=== PATIENT | female | born 1965 | race Caucasian/White ===

== ENCOUNTER 2021-12-21 13:52 | Emergency (ER) | payer MEDICAID, SELFPAY ==
[2021-12-21 14:11] VITALS: BP 133/72; PULSE 100; RESP 20; TEMP 35.8; O2SAT 98; BMI 43.3
--- NOTE | 2021-12-21 14:27 | CRLHL7_ITS ---
For Patients: As a result of the Century Cures Act, medical imaging exams and procedure reports are released immediately into your electronic medical record. You may view this report before your referring provider. If you have questions, please contact your health care provider. HISTORY: Chest pain. TECHNIQUE: Intravenous contrast enhanced CT chest. 95 ml Isovue 370 intravenous contrast administered. COMPARISON: No prior. FINDINGS: There is no acute pulmonary embolism. No thoracic aortic aneurysm. No significant pericardial effusion. No enlarged mediastinal or hilar lymph nodes. There are areas of mild atelectasis and/or scarring within the lungs. No consolidation. No pulmonary edema. Calcified granuloma left upper lobe. No pneumothorax or pleural effusion. - Small hiatal hernia. Postsurgical changes of gastric bypass. Prior cholecystectomy. - Mild degenerative changes of the spine. No acute fractures. IMPRESSION: 1. No acute pulmonary embolism. 2. No acute lung infiltrate. Dictated by Humberto Cerna MD @ 12/21/2021 3:31:45 PM Please note that all CT scans at this facility use dose modulation, iterative reconstruction, and/or weight-based dosing when appropriate to reduce radiation dose to as low as reasonably achievable. Dictated by: Humberto Cerna MD @ 12/21/2021 15:31:51 (Electronically Signed)
--- NOTE | 2021-12-21 14:30 | ED_ITS ---
HPI - General Adult General Time Seen by Provider: 14:30 Date Seen: 12/21/21 Chief complaint: Chest Pain Stated complaint: Chest pain and shortness of breath Time Seen by Provider: 12/21/21 14:05 Source: patient Mode of arrival: ambulatory Limitations: no limitations History of Present Illness HPI narrative: Patient is a 56 year white female who has a history of depression, sees the [facility] for primary care, reports starting last night having some left-sided chest wall discomfort that now she has got more pain with deep breathing seems to radiate through to her back she notices it very pleuritic in that she takes a deep breath and feels more pain in her anterior chest. She has had COVID in the past, she has no chronic lung disease, quit smoking 15 years ago. Patient denies leg swelling or edema no history of cardiac issues or COPD by her history. She presents to the ED for evaluation at this point she still feels some generalized pleuritic pain when she takes deep breath, if she sits still she feels better. She reports the pain is 6/10 when she takes a deep breath Related Data Home Medications Medication Instructions Recorded Confirmed dextroamphetamine-amphetamine 20 20 mg PO DAILY 12/21/21 12/21/21 mg tablet ferrous sulfate 325 mg (65 mg 325 mg PO DAILY 12/21/21 12/21/21 iron) tablet,delayed release fluoxetine 10 mg capsule 10 mg PO 12/21/21 Previous Rx's Medication Instructions Recorded prednisone 20 mg tablet 20 mg PO BID #6 tabs 12/21/21 Allergies Allergy/AdvReac Type Severity Reaction Status Date / Time No Known Drug Allergies Allergy Verified 12/21/21 14:15 Review of Systems Status of ROS: Reports: 10 or more systems reviewed and unremarkable except as noted in History and below [facility] Social History Smoking Status: Former smoker Do you use any of these nicotine containing products: None Second hand tobacco smoke exposure: No How often do you have a drink containing alcohol: 2-3 times a week How often do you have six or more drinks on one occasion: Never AUDIT-C Alcohol total score: 3 Non-prescribed substance use: denies use Exam Narrative: Exam Narrative: Objective: Patient is alert orient x3, noncyanotic HEENT is unremarkable Neck is supple Chest is clear no rales or wheezing Heart rhythm regular no murmur Abdomen benign soft nontender obese Extremities are no edema neurologic nonfocal Skin is peripherally warm and dry Const: Vital Signs, click to edit/add: Vital Signs - 24 hr 12/21/21 14:11 12/21/21 14:40 12/21/21 15:20 Temperature 96.4 F L Pulse Rate [Right Pulse Oximeter] 100 93 75 Respiratory Rate 20 18 13 Blood Pressure [Ri ght Upper Arm] 133/72 125/57 L 106/53 L Pulse Oximetry 98 97 Oxygen Delivery Me thod Room Air Room Air 12/21/21 15:40 Temperature Pulse Rate [Right Pulse Oximeter] 81 Respiratory Rate 20 Blood Pressure [Ri ght Upper Arm] 102/60 Pulse Oximetry 97 Oxygen Delivery Me thod Room Air Course Vital Signs Vital signs: Initial Vital Signs Temperature 96.4 F L 12/21/21 14:11 Temperature Source Temporal Artery Scan 12/21/21 14:11 Pulse Rate 100 12/21/21 14:11 Respiratory Rate 20 12/21/21 14:11 Blood Pressure 133/72 12/21/21 14:11 Blood Pressure Mean 92 12/21/21 14:11 Blood Pressure Position Sitting 12/21/21 14:11 Pulse Oximetry 98 12/21/21 14:11 Oxygen Delivery Method 12/21/21 14:11 Vital Signs Temperature 96.4 F L 12/21/21 14:11 Pulse Rate 100 12/21/21 14:11 Respiratory Rate 20 12/21/21 14:11 Blood Pressure 133/72 12/21/21 14:11 Pulse Oximetry 98 12/21/21 14:11 Oxygen Delivery Method 12/21/21 14:11 Temperature 96.4 F L 12/21/21 14:11 Pulse Rate 81 12/21/21 15:40 Respiratory Rate 20 12/21/21 15:40 Blood Pressure 102/60 12/21/21 15:40 Pulse Oximetry 97 12/21/21 15:40 Oxygen Delivery Method 12/21/21 15:40 Medical Decision Making MDM Narrative Medical decision making narrative: Patient is a 56 white female with pleuritic chest pain, diffuse, in her anterior chest left lateral chest and upper back. Rule out acute coronary syndrome, rule out PE, pneumonia, rule out chest wall pain. Patient will get labs, troponin, EKG, monitoring, CT scan, IV pain medicine in the form of Toradol. The patient has had gastric bypass but I think 1 dose aspirin would be appropriate given her presentation. Addendum: Patient's CT scan of the chest is basically negative, EKG shows normal sinus rhythm no acute ST T wave changes by my review although she does have some biphasic T-waves laterally I do not have an old 1 for comparison. The patient denies any shortness of breath presently. She has had COVID in the past. Her troponin is 0 her laboratory studies look reassuring. She she feels better after the Toradol. I think would be reasonable to try some Tylenol for brief period of time, med I gave her some prednisone 20 mg b.i.d. for the next 3 days. She may have just some chest wall inflammation. Recheck with regular doctor in the next couple of days with an update, return to the ED sooner problems or concerns Lab Data Labs: Lab Results 12/21/21 12/21/21 12/21/21 Range/Units 14:50 14:50 14:50 WBC 4.70 (4.50-11.00) K/uL RBC 4.28 (4.00-5.20) m/uL Hgb 14.1 (12.0-16.0) gm/dL Hct 41.9 (33.0-51.0) % MCV 98 (80-100) fL MCH 33 (26-34) pg MCHC 34 (32-36) gm/dL RDW Coeff of [place] 12.2 (11.5-15.5) % Plt Count 169 (140-440) K/uL Neut % (Auto) 75.6 H (42.0-72.0) % Lymph % (Auto) 14.7 L (20-44) % [place] % (Auto) 9.1 (0.0-11.0) % Eos % (Auto) 0.2 (0.0-7.0) % Baso % (Auto) 0.4 (0.0-3.0) % Neut # (Auto) 3.60 (1.7-7.0) K/uL Lymph # (Auto) 0.70 L (0.90-2.90) K/uL [place] # (Auto) 0.40 (0.00-0.90) K/UL Eos # (Auto) 0.01 (0.00-0.50) K/uL Baso # (Auto) 0.02 (0.00-0.30) K/uL Abs Immat Gran (auto) 0.00 (0.00-0.30) K/uL Sodium 135 (135-149) mmol/L Potassium 3.9 (3.6-5.1) mmol/L Chloride 101 (96-114) mmol/L Carbon Dioxide 27 (20-32) mmol/L BUN 18 (7-30) mg/dL Creatinine 0.9 (0.5-1.5) mg/dL Estimated Creat Clear 63.55 Estimated GFR 76 ml/min Glucose 107 (60-115) mg/dL Calcium 8.6 (8.4-10.6) mg/dL Total Bilirubin 0.6 (0.1-1.5) mg/dL Direct Bilirubin 0.1 (0.0-0.5) mg/dL AST 97 H (12-35) U/L ALT 63 H (4-35) U/L Alkaline Phosphatase 93 (40-150) U/L C-Reactive Protein 3.6 H (0.5-1.0) mg/dL Total Protein 7.7 (6.0-8.3) g/dL Albumin 4.4 (3.3-5.0) g/dL POC Troponin I 0.00 L (0.01-0.04) ng/ml Discharge Plan Discharge Clinical Impression: Chest pain Patient Disposition: Home, Self-Care Condition: Stable Additional Instructions: Rest, light activity, prednisone as prescribed, Tylenol as needed, update primary care doctor in the next 2 days, return to ED sooner problems concerns. Activity Level: Light activity Discharge Diet: Regular Prescriptions: New prednisone 20 mg tablet 20 mg PO BID Qty: 6 0RF No Action dextroamphetamine-amphetamine 20 mg tablet 20 mg PO DAILY fluoxetine 10 mg capsule 10 mg PO ferrous sulfate 325 mg (65 mg iron) tablet,delayed release (DR/EC) 325 mg PO DAILY Follow Up/Referrals: Stefania Fischer PA-C [Primary Care Provider] - Stand Alone Forms: MyHealth Info Instructions
[2021-12-21 14:40] VITALS: BP 125/57; PULSE 93; RESP 18
[2021-12-21 15:10] LABS: Basophils Absolute Auto 0.02 K/uL (0.00-0.30); Basophils Percent Auto 0.4 % (0.0-3.0); Eosinophils Absolute Auto 0.01 K/uL (0.00-0.50); Eosinophils Percent Auto 0.2 % (0.0-7.0); Hematocrit 41.9 % (33.0-51.0); Hemoglobin* 14.1 gm/dL (12.0-16.0); Lymphocytes Percent Auto 14.7 % (20-44); Mean Corpuscular HGB Conc 34 gm/dL (32-36); Mean Corpuscular Hemoglobin 33 pg (26-34); Mean Corpuscular Volume 98 fL (80-100); Monocytes Percent Auto 9.1 % (0.0-11.0); Neutrophils Percent Auto 75.6 % (42.0-72.0); Platelet Count* 169 K/uL (140-440); RDW Coefficient of Variation % 12.2 % (11.5-15.5); Red Blood Count 4.28 m/uL (4.00-5.20)
[2021-12-21 15:13] LABS: Slide Review Reflex No
[2021-12-21] MEDS: KETOROLAC 30 MG/ML inj IVP (15:18)
[2021-12-21] MEDS: 0.9 % SODIUM CHLORIDE 500 ML 500 ML IV (15:18)
[2021-12-21] MEDS: ASPIRIN 81 MG TAB.CHEW 324 MG PO (15:18)
[2021-12-21 15:20] VITALS: BP 106/53; PULSE 75; RESP 13; O2SAT 97
[2021-12-21 15:25] LABS: Albumin* 4.4 g/dL (3.3-5.0); Chloride* 101 mmol/L (96-114)
[2021-12-21 15:26] LABS: Potassium* 3.9 mmol/L (3.6-5.1); Sodium* 135 mmol/L (135-149)
[2021-12-21 15:28] LABS: Bilirubin Direct* 0.1 mg/dL (0.0-0.5); Bilirubin Total* 0.6 mg/dL (0.1-1.5); Carbon Dioxide* 27 mmol/L (20-32); Creatinine* 0.9 mg/dL (0.5-1.5); Est. Creatinine Clearance* 63.55; Estimated Glomerular Filt Rate 76 ml/min; Total Protein* 7.7 g/dL (6.0-8.3)
[2021-12-21 15:29] LABS: Alanine Aminotransferase* 63 U/L (4-35); Alkaline Phosphatase* 93 U/L (40-150); Aspartate Amino Transferase* 97 U/L (12-35); Blood Urea Nitrogen* 18 mg/dL (7-30); Calcium* 8.6 mg/dL (8.4-10.6); Glucose* 107 mg/dL (60-115)
[2021-12-21 15:31] LABS: C Reactive Protein* 3.6 mg/dL (0.5-1.0)
[2021-12-21 15:40] VITALS: BP 102/60; PULSE 81; RESP 20; O2SAT 97
== END 2021-12-21 16:00 | disposition home or self-care (01) ==
PROVIDERS: Emergency Provider Family Medicine; PCP Physician Assistant Medical
DX: R07.9 Chest pain, unspecified (principal)
CPT/HCPCS: 36415; 71260; 80048; 80076; 84484; 85025; 86140; 93005; 96374; 99284; 99285; A9270; J1885; J7120; Q9967

== ENCOUNTER 2024-05-31 10:15 | Outpatient (RCR) | payer MEDICAID, SELFPAY | END 2024-09-28 23:59 | disposition home or self-care (01) | PROVIDERS: PCP Physician Assistant Medical; Visit Provider Physician Assistant Medical | DX: S62.624D Displaced fracture of middle phalanx of right ring finger, subsequent encounter for fracture with routine healing (principal); Z51.89 Encounter for other specified aftercare | CPT/HCPCS: 97035; 97110; 97140; 97165; 97535; X5282 ==

== ENCOUNTER 2024-09-20 13:53 | Emergency (ER) | payer MEDICAID, SELFPAY ==
--- OUTSIDE RECORDS SUMMARY | 2024-09-20 13:56 | XMS_ITS | Clinical Summary ---
Author Organization [employer] [facility] [employer] [facility] Address [address] [place] [address] Care Team Providers Care Fire Control Assistant Name Role Phone Sid Van MD Unavailable [phone] Maria Luz Estrada MD Unavailable [phone] Stefania Fischer Primary Care Provider Allergies Active Allergy Reactions Criticality Noted Date Comments Gold Au 198 Rash 02/18/2022 Tea Tree Oil Rash High 09/26/2011 Medications cholecalciferol (VITAMIN D3) 2,000 unit capsuleIndicatio ns:Vitamin D deficiency Take 2 capsules by mouth once daily. 0 3 Active multivitamin (MVI) tablet Take 1 tablet by mouth once daily. 0 3 Active nystatin powder (MYCOSTATIN) powderIndication s:Tinea Apply 1 Strip topically to affected area(s) three times daily. 60 g 5 4 Active topiramate (TOPAMAX) 100 mg tabletIndication s:Class 3 severe obesity with body mass index (BMI) of 45.0 to 49.9 in adult, unspecified obesity type, unspecified whether serious comorbidity present,Migraine with status migrainosus, not intractable, unspecified migraine type Take 1 Tablet (100 mg) by mouth two times daily. 180 Tablet 1 4 Active SUMAtriptan (IMITREX) 25 mg tabletIndication s:Migraine with aura and with status migrainosus, not intractable TAKE ONE TABLET BY MOUTH EVERY 2 HOURS NEEDED FOR MIGRAINE; TAKE DOSES AT A MINIMUM OF 2 HOURS APART (MAX DOSE: 200 MG IN 24 HOURS) 9 Tablet 5 5 Active DULoxetine (CYMBALTA) 60 mg Delayed-release capsuleIndicatio ns:SERAFIN (generalized anxiety disorder),Severe episode of recurrent major depressive disorder, without psychotic features (HC) TAKE 1 CAPSULE (60MG) BY MOUTH ONCE DAILY. 90 Capsule 5 Active semaglutide, weight loss, (Wegovy) 1 mg/0.5 mL subcutaneous penIndications:C lass 3 severe obesity with body mass index (BMI) of 45.0 to 49.9 in adult, unspecified obesity type, unspecified whether serious comorbidity present Inject 1 mg subcutaneous once weekly. 6 mL 5 Active metFORMIN 500 mg tabletIndication s:Class 3 severe obesity with body mass index (BMI) of 45.0 to 49.9 in adult, unspecified obesity type, unspecified whether serious comorbidity present,Insulin resistance TAKE ONE TABLET (500 MG) BY MOUTH TWICE DAILY WITH MEALS 180 Tablet 5 Active triamcinolone 0.1 % creamIndications :Dermatitis Apply topically to affected area(s) three times daily. 80 g 5 Active Active Problems Problem Noted Date Diagnosed Date Severe episode of recurrent major depressive disorder, without psychotic features 05/24/2024 Alcohol use disorder, moderate, in early remissi on 05/24/2024 ASCUS with positive high risk HPV cervical 01/07 Overview (01/20/2022): 01/07/18 ASCUS/HPV+ 02/11/18 Mammoth: Negative 12/24/21 NIL/HPV+, HPV 16/18 Negative Plan: Pap and HPV 12/2022 Adenomatous colon polyp 08/11/2017 Overview (08/11/2017): Colonoscopy 08/2017 polyps, repeat in 5 years Humerus fracture 01/15/2014 Dysfunctional alcohol use 11/04/2013 Vitamin D deficiency 08/17/2009 S/P gastric bypass 10/15/2008 Depression 10/15/2008 Status post gastric bypass for obesity 8 Attention deficit disorder without mention of hy peractivity 09/19/2006 Migraine, unspecified, witho ut mention of intractable migraine without mention of status migrainosus 09/19/2006 Resolved Problems Problem Noted Date Diagnosed Date Resolved Date Menorrhagia 11/26/2012 11/04/2013 Lump or mass in breast 06/01/201211/24 Gallstone pancreatitis 10/15/200811/04 Anemia, unspecified 10/15/2008 11/05/19 14 Encounters Date Type Department Care Team Description 09/14/2024 2:25 PM CDT Office Visit [facility] [address] [place] [address] Aquilino Brooks PA Derm Problem 09/14/2024 Travel 09/14/[address] [facility] [address] [place] [address] Stefania Fischer PA Bite (Large red/purple lumps on face and neck) 08/05/[address] [facility] [address] [place] [address] Stefania Fischer PA Refill Request (Metformin) 07/20/2024 11:50 AM CDT Office Visit [facility] [address] [place] [address] Stefania Fischer PA Medication Management (Wegovy - ) 07/19/2024 Travel 07/12/[address] [facility] [address] [place] [address] Teresa Foster NP Refill Request (Duloxetine) 06/25/[address] [facility] [address] [place] [address] Stefania Fischer PA Refill Request (Sumatriptan) from Last 3 Months Immunizations Immunization Administration Dates Next Due Influenza, IIV3 (Age >=3 years) 05/28/2012,03/14 Influenza, IIV4 04/14/2017,02/27/2016,03/20/2015 Td (Age >=7 Years) 12/15/2003 Tdap 05/28/2012 Family History Medical History Relation Name Comments Good Health Father Diabetes Mother Hyperlipidemia Mother Hypertension Mother Cancer-colon Paternal Grandfather Cancer-breast No Family History Relation Name Status Comments Father Alive Mother Alive Paternal Grandfather Social History Tobacco Use Types Packs/Day Years Used Date Smoking Tobacco: Former Cigarettes 1 15 0 11/08/1988 - 11/09/2003 Smokeless Tobacco: Never Tobacco Cessation:Counseling Given: Not Answered Alcohol Use Standard Drinks/Week Comments Not Currently 0 (1 standard drink = 0.6 oz pur e alcohol) PHQ-2 Answer Date Recorded PHQ-2 TOTAL SCORE 6 02/23/2024 Social Connections Answer Date Recorded Do you often feel lonely or isolated from those around you? 0 08/14/2023 Alcohol Use Answer Date Recorded How often do you have a drink containing alcohol ? 4 02/18/2022 How many drinks containing a lcohol do you have on a typical day when you are drinking? 1 02/18/2022 Frequency of Binge Drinking Not on file 02/08 Financial Resource Strain Answer Date R ecorded Difficulty of Paying Living Expenses 3 08/14/2023 Difficulty of Paying Living Expenses Not on file 08/14/2023 Food Insecurity Answer Date Recorded Do you worry your food will run out before you are able to buy more? 1 08/14/2023 Transportation Needs Answer Date Record ed Does lack of transportation keep you from medica l appointments? 1 08/14/2023 Does lack of transportation keep you from work, meetings or getting things that you need? 1 08/14/2023 Housing Stability Answer Date Recorded What is your housing situation today? 1 08/14/2023 Utilities Answer Date Recorded Do you have trouble paying f or utilities (for example, heat, electricity, water, phone)? 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 [employer] Gender Identity Not on file Sexual Orientation Not on file Obstetrics History Para Term AB IAB SAB Ectopic Multiple Livin g Live Births 3 3 3 Date Outcome GA Total Labor Labor/2nd/3rd Weight Sex Type Anes PTL Maribel A1 A5 Name Clin Para Para Para Last Filed Vital Signs Vital Sign Reading Time Taken Comments Blood Pressure 133/62 09/14/2024 1:48 PM CDT Pulse 72 09/14/2024 1:48 PM CDT Temperature 36.3 C (97.4 F) 09/14/2024 1:48 PM CDT Respiratory Rate 14 09/14/2024 1:48 PM CDT Oxygen Saturation 96% 09/14/2024 1:48 PM CDT Inhaled Oxygen Concentration - - Weight 113.8 kg (250 lb 12.8 oz) 2024 11:40 AM CDT Height 164.2 cm (5' 4.65) 07/20/2024 1 1:40 AM CDT Body Mass Index 42.19 07/20/2024 11:40 AM CDT Plan of Treatment Upcoming Encounters Date Type Department Care Team (Late st Contact Info) Description 09/23/2024 10:30 AM CDT Office Visit [facility] [address] [place] [address] Stefania Fischer PA [address] [place] [address] 10/11/2024 10:30 AM CDT Office Visit [facility] [address] [place] [address] Teresa Foster NP [address] [place] [address] 10/18/2024 11:10 AM CDT Office Visit [facility] [address] [place] [address] Stefania Fischer PA [address] [place] [address] Health Maintenance Due Date Last Done Comments HIV for age 15-65 1981 Pneumococcal series for age 50+ (1 of 2 - PCV) 1985 Zoster (shingles) series for age 50+ (1 of 2) 2016 Tetanus booster 05/28/2022 05/28/2012, 12/15/2003 Colonoscopy through age 75 07/31/202207/31, 07/31/2017, 07/31/2017 Pap test for age 21-65 12/24/2022 , 12/24/2021, 01/07/2018, Additional history exists COVID-19 vaccine series ( season) 2024 02/02/2021, 01/12/2021 Influenza Vaccine (Season Ended) 2025 04/14/2017, 02/27/2016, 03/20/2015, Additional history exists Depression screening for age 12+ 03/01/2025 03/01/2024, 02/23/2024, 02/23/2024, Additional history exists Mammogram for age 45-75 05/10/2025 05/10/20 24, 04/16/2023, 09/25/2021, Additional history exists BMI (ht and wt on same day) for age 18+ 07/20/2025 07/20/2024, 05/24/2024, 08/14/2023, Additional history exists Lipids for age 45-75 12/24/2026 12/24/2021, 08/16/2009, 03/14/2008 Tdap Completed 05/28/2012 Hepatitis C screening for ag e 18-79 Completed 12/24/2021 Procedures Procedure Name Priority Date/Time Associated Diagnosis Comments BASIC METABOLIC PANEL Routine 07/20/2024 12:07 PM CDT Class 3 severe obesity with body mass index (BMI) of 45.0 to 49.9 in adult, unspecified obesity type, unspecified whether serious comorbidity present (HC) XR MAMMO BILAT SCREENING Routine 05/10/2024 11:52 AM HAND [employer]SEM[employer] Visit for screening mammogram ANTI HCV Routine 12/24/2021 11:34 AM CDT Need for hepatitis C screening test LIPID PANEL W REFLEX MEASURED LDL Routine 12/24/2021 11:34 AM CDT Screening cholesterol level HPV HIGH RISK Routine 12/24/2021 11:08 AM CDT ASCUS with positive high risk HPV cervical COLONOSCOPY 07/31/2017 9:22 AM CDT from Last 3 Months or Most Recently Relevant to Health Maintenance Results * BASIC METABOLIC PANEL (07/20/2024 12:07 PM CDT) GLUCOSE 87 65 - 99 mg/dL [facility] Comment: Fasting reference interval UREA NITROGEN (BUN) 19 7 - 25 mg/dL [facility] CREATININE 0.86 0.50 - 1.03 mg/dL [facility] EGFR 79 > OR = 60 mL/min/1. 73m2 [facility] BUN/CREATININE RATIO SEE NOTE: 6 - 22 (calc) [facility] Comment: Not Reported: BUN and Creatinine are within reference range. SODIUM 143 135 - 146 mmol/L [facility] POTASSIUM 4.9 3.5 - 5.3 mmol/L [facility] CHLORIDE 105 98 - 110 mmol/L [facility] CARBON DIOXIDE 27 20 - 32 mmol/L [facility] ELECTROLYTE BALANCE 11 7 - 17 mmol/L (calc) [facility] CALCIUM 9.7 8.6 - 10.4 mg/dL [facility] Blood BLOOD SPECIMEN / Unknown 07/20/2024 12:07 PM CDT 07/20/2024 12:07 PM CDT us Stefania REHMAN CHEMISTRY Final R esult [employer] [facility] [address] [place] [address], [facility] [address] [place] [address] * XR MAMMO BILAT SCREENING (05/10/2024 11:52 AM 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 Recommend annual mammograms. MAMMOGRAM ASSESSMENT: ACR 1 Negative PATIENTS: You will also receive a letter with your examination results in an easy to read format. If you have questions about your results, please contact your referring provider. Narrative 05/10/2024 3:50 PM HAND ASSEMBLER [employer] For Patients: As a result of the Century Cures Act, medical imaging exams and procedure reports are released immediately into your electronic medical record. You may view this report before your referring provider. If you have questions, please contact your health care provider. XR MAMMO BILAT SCREENING [[id number]] CLINICAL HISTORY: This is an asymptomatic 58 y.o. patient. INDICATION FOR EXAM: Mammogram Screening. TECHNIQUE: CC & MLO views were obtained. This study was evaluated with the assistance of Computer-Aided Detection. COMPARISON FILM: Yes 04/16/23 [employer] [facility] [employer] 09/25/21 [facility] FINDINGS: There are scattered areas of fibroglandular density. There are no dominant masses, suspicious micro calcifications or areas of architectural distortion. us Stefania REHMAN MAMMO Final R esult * (ABNORMAL) LIPID PANEL W REFLEX MEASURED LDL (12/24/2021 11:34 AM CDT) CHOLESTEROL,TOTAL 230(H) 100 - 199 mg/dL 12/25/2021 4:41 AM CDT [facility] TRIGLYCERIDES 84 <150 mg/dL 12/25/2021 4:41 AM CDT [facility] HDL CHOLESTEROL 92 >40 mg/dL 4:41 AM CDT [facility] NON-HDL CHOLESTEROL 138 <145 mg/dl 12/25/2021 4:41 AM CDT [facility] CHOL/HDL RATIO 2.50 <4.50 12/25/2021 4:41 AM CDT [facility] LDL CHOLESTEROL 121 <=130 mg/dL 12/25/2021 4:41 AM CDT [facility] VLDL CHOLESTEROL 17 <=30 mg/dL 12/25/2021 4:41 AM T [facility] PROVIDER ORDERED STATUS RANDOM 12/25/2021 4:41 AM CDT [facility] Blood BLOOD SPECIMEN / Unknown Butterfly / Unknown 12/24/2021 11:34 AM CDT 12/24/2021 11:35 AM CDT Stefania REHMAN CHEMISTRY Final R esult [facility] [address] [place] [address], [place] * ANTI HCV (12/24/2021 11:34 AM CDT) HEPATITIS C ANTIBODY Non-React raisa Non-React raisa 12/25/2021 5:01 AM CDT [facility] Comment:Antibodies to HCV no t detected; does not exclude the possibility of exposure to HCV. Blood BLOOD SPECIMEN / Unknown Butterfly / Unknown 12/24/2021 11:34 AM CDT 12/24/2021 11:35 AM CDT Stefania REHMAN SEND OUTS Final R esult Performing Organization Address City/[facility]/ZIP Co de Phone Number [facility] [address] [place] [address], * (ABNORMAL) HPV HIGH RISK (12/24/2021 11:08 AM CDT) TYPE 16 Negative Negative 12/26/2021 2:34 PM CDT [facility] TYPE 18 Negative Negative 12/26/2021 2:34 PM CDT [facility] OTHER HIGH RISK TYPES Positive(A) Negative 12/26/2021 2:34 PM CDT [facility] Other (Cervical) Non-Blood / Unknown 12/24/2021 11:08 AM CDT 12/24/2021 6:53 PM CDT Narrative [facility] - 12/26/2021 2:34 PM CDT Specimen is positive for the DNA of any one of, or combination of, the following high risk HPV types: 31, 33, 35, 39, 45, 51, 52, 56, 58, 59, 66, 68. HPV types 16 and 18 DNA were undetectable or below the pre-set threshold. Methodology: Yadira Bebe 4800 HPV Test us Stefania REHMAN MICROBIOLOGY Final R esult [facility] [address] [place] [address], [place] * COLONOSCOPY (07/31/2017 9:22 AM CDT) 07/31/2017 9:22 AM CDT Narrative Transcriptions Billy Jefferson MD - 07/31/2017 10:11 AM CDT Patient Name: Dyana Jang Procedure Date: 07/31/2017 Gender: Female Date of : 1965 Admit Type: Outpatient Procedure: Colonoscopy Proceduralist: Billy Jefferson MD , Daphney Booker (Nurse) Indications/Pre-Op Diagnosis: Screening for colorectal malignant neoplasm, This is the patient's first colonoscopy Medications: Fentanyl 100 micrograms IV, Midazolam 2 mgIV, The level of sedation administered wasmoderate Procedure Description: The patient had risks, benefits and alternatives explained to andgave informed consent. The patient had a stable cardiopulmonary status and judged an adequate candidate for conscious sedation. The Colon CF-H180AL [id number] was passed through the anus and advancedto the cecum, identified by appendiceal orifice and ileocecal valve. The colonoscopy was performed without difficulty. The patient toleratedthe procedure well. The quality of the bowel preparation was good. The ileocecal valve, appendiceal orifice, and rectum were photographed. Complications: No immediate complications. Estimated Blood Loss & Specimen: Estimated blood loss: none. Specimen collected - Yes and sent to Laboratory Findings: The perianal and digital rectal examinations were normal. A 4 mm polyp was found in the sigmoid colon. The polyp was sessile.The polyp was removed with a hot snare. Resection and retrieval were complete. A 3 mm polyp was found in the ascending colon. The polyp was sessile. The polyp was removed with a cold biopsy forceps. Resection and retrieval were complete. The colon (entire examined portion) was mildly redundant. The exam was otherwise without abnormality on direct and retroflexion views. Impressions/Post-Op Diagnosis: - One 4 mm polyp in the sigmoid colon, removed with a hot snare. Resected and retrieved. - One 3 mm polyp in the ascending colon, removed with a cold biopsy forceps. Resected and retrieved. - Redundant colon. - The examination was otherwise normal on direct and retroflexionviews. Recommendation: - Patient has a contact number available for emergencies. The signsand symptoms of potential delayed complications were discussed with the patient. Return to normal activities tomorrow. Written discharge instructions were provided to the patient. - Resume previous diet. - Continue present medications. - Await pathology results. - Repeat colonoscopy is recommended. The colonoscopy date will be determined after pathology results from today's exam become available for review. - For future colonoscopy the patient will require an extended preparation, PEG 4-8L. If there are any questions, please contact the performance engineer. Moderate Sedation: Moderate (conscious) sedation was administered by the endoscopy nurse and supervised by the endoscopist. The following parameters were monitored: oxygen saturation, heart rate, respiratory rate, blood pressure, adequacy of pulmonary ventilation and reponse to care. [facility] flow[facility]ets and nursing notes for moderate sedation details. Total physician intraservice time was 24 minutes. Billy Jefferson MD 07/31/2017 10:11:45 AM This report has been signed electronically. Note Initiated On: 07/31/2017 9:22 AM Procedure Code(s): --- Professional --- 80924, Colonoscopy, flexible; with removalof tumor(s), polyp(s), or other lesion(s) bykaynarsulma technique 90209, 59, Colonoscopy, flexible; withbiopsy, single or multiple Diagnosis Code(s): --- Professional --- Z12.11, Encounter for screening formalignant neoplasm of colon D12.5, Benign neoplasm of sigmoid colon D12.2, Benign neoplasm of ascending colon Q43.8, Other specified congenitalmalformations of intestine CPT copyright 2017 [employer]. All rights reserved. The codes documented in this report are preliminary and upon radial router operator reviewmay be revised to meet current compliance requirements. Scope In: 9:36:11 AM Scope Withdrawal Time 0 hours 11 minutes 55 seconds Scope Out: 9:58:16 AM Billy Jefferson MD PROCEDURE ORD Final Res ult from Last 3 Months or Most Recently Relevant to Health Maintenance Insurance [facility] Advance Directives * Full Code (Latest Code Status on File) Date Activated Date Inactivated Comments 11/26/2012 8:21 AM 11/26/2012 3:05 PM * Full Code Date Activated Date Inactivated Comments 10/18/2008 10:50 AM 10/22/2008 4:30 PM * Full Code Date Activated Date Inactivated Comments 10/15/2008 8:58 AM 10/18/2008 10:50 AM Care Teams Fire Control Assistant Relationship Specialty Start Date End Date Stefania Fischer PA [address] [place] [address] PCP - General Family Practice 03/20/15 Sid Van MD [address] [address] Nephrology Nephrology 06/30/12 Maria Luz Estrada MD [address] [place] [address] Gynecology Obstetrics and Gynecology 09/28/12
--- NOTE | 2024-09-20 13:57 | ED.GENADULT ---
HPI - General Adult General Date Seen: 09/20/24 Chief complaint: Shortness of Breath/Dyspnea Stated complaint: Tingling body, Light headed, SOB Time Seen by Provider: 09/20/24 13:55 History of Present Illness HPI narrative: 58 yo F with h/o depression, distant h/o tobacco use (15 - 20 yrs ago), presents to the ER this afternoon (accompanied by her son) for evaluation of tingling pins and needles throughout her body as well as shortness of breath lightheadedness. Patient has a history depression and is on fluoxetine, and is on metformin for weight loss but does not have diabetes. She presents to the ER today with symptoms that began with an hour prior to arrival. She was feeling normally lately. No recent illness. No recent cough or fever. No chest pain. No palpitations. No vomiting or diarrhea. No black or bloody stools. No swelling in her legs. She has had some recent GI problems so her friend recommended that she start on a probiotic. She took her 1st 1 of those this morning which was a gummy containing bacillus coagulans as well as other inactive ingredients. She was otherwise getting ready for work and was in her normal usual state of health. She started to feel tingly pins and needles that started in her feet and then spread proximally from there. They also started her fingertips and spread proximally for there and then have gotten throughout her whole body all the way up to her head. She began to feel little bit lightheaded. She was not really feeling palpitations or chest pain. She got a little bit short of breath. She continues to feel very tingly and pins and needles throughout her body. She says that she has had pins and needles occasionally in the past like when she sits on her foot in a position (when her foot falls asleep). She has always been able to shake her body (foot) and make them go away. These pins and needles though have not gone away yet. She also felt lightheaded. No CP. No n/v. She called her son who brought her right here to the ER. Now she is here in the ER she is still feeling tingly but is not as lightheaded anymore and is not short of breath. She was not having any weakness in her arms or legs. No slurred speech. No blurry vision. Symptoms were bilateral and symmetric. At no time did she have any unilateral numbness. Related Data Home Medications ?Medication ?Instructions ?Recorded ?Confirmed dextroamphetamine-amphetamine 20 20 mg PO DAILY 12/21/21 12/21/21 mg tablet ferrous sulfate 325 mg (65 mg 325 mg PO DAILY 12/21/21 12/21/21 iron) tablet,delayed release fluoxetine 10 mg capsule 10 mg PO 12/21/21 duloxetine 60 mg capsule,delayed 60 mg PO DAILY 09/20/24 09/20/24 release metformin 500 mg tablet 500 mg PO BID 09/20/24 09/20/24 semaglutide (weight loss) 0.5 mg subcut 09/20/24 mg/0.5 mL subcutaneous pen injector (Wegovy) topiramate 100 mg tablet 100 mg PO BID 09/20/24 09/20/24 triamcinolone acetonide 0.1 % 1 applic topical BID-TID 09/20/24 09/20/24 topical cream Previous Rx's ?Medication ?Instructions ?Recorded prednisone 20 mg tablet 20 mg PO BID #6 tabs 12/21/21 Allergies Allergy/AdvReac Type Severity Reaction Status Date / Time No Known Drug Allergies Allergy Verified 12/21/21 14:15 [facility] Social History Smoking Status: Former smoker Do you use any of these nicotine containing products: None Second hand tobacco smoke exposure: No How often do you have a drink containing alcohol: 2-3 times a week How often do you have six or more drinks on one occasion: Never AUDIT-C Alcohol total score: 3 Non-prescribed substance use: denies use Exam Narrative: Exam Narrative: Constitutional: Appears well-developed and well-nourished. Alert. Conversant. Non toxic. Polite. See was mildly anxious. HENT: Head: Atraumatic. Nose: Nose normal. Mouth/Throat: Oral mucosa is clear and moist. no trismus. Pharynx normal. Tonsils symmetric. No tonsillar enlargement, erythema, or exudate. Eyes: Conjunctivae normal. EOM normal. Pupils equal, round, and reactive to light. No scleral icterus. Neck: Normal range of motion. Neck supple. No tracheal deviation present. Cardiovascular: Normal rate, regular rhythm. No gallop. No friction rub. No murmur heard. Symmetric radial artery pulses Pulmonary/Chest: Effort normal. No stridor. No respiratory distress. No wheezes. No rales. No rhonchi . No tenderness. Abdominal: Soft. No distension. No mass. No tenderness. No rebound. No guarding. Musculoskeletal: RUE: Normal range of motion. No tenderness. No deformity LUE: Normal range of motion. No tenderness. No deformity RLE: Normal range of motion. No edema. No tenderness. No deformity LLE: Normal range of motion. No edema. No tenderness. No deformity Neurological: Mental status normal. Attention normal. Alert and oriented x3. GCS 15. Memory normal. Speech fluent. Cognition normal. Cranial Nerves intact II-XII except I did not formally test gag or visual acuity. EOMI. Palate elevates symmetrically and tongue protrudes in the midline. Strength: 5/5 trapezius on the right and left 5/5 deltoid on the right and left 5/5 biceps on the right and left 5/5 triceps on the right and left 5/5 information technology project manager on the right and left 5/5 thumb opposition on the right and left 5/5 finger abduction on the right and left 5/5 hip flexors (L3) on the right and left 5/5 quadriceps (L4) on the right and left 5/5 tibialis anterior on the right and left 5/5 EHL (L5) on the right and left 5/5 gastrocnemius (S1) on the right and left 5/5 hamstring on the right and left Sensation intact to light touch in both upper extremities (C4-T1) Sensation intact to light touch in Both lower extremities (L4-S1). Finger to nose and coordination normal. Gait normal. Skin: Skin is warm and dry. No rash noted. No pallor. Normal capillary refill. Psychiatric: Normal mood. Seems mildly anxious. Denies any recent stressors. Her son is with her and he is in the midst of College finals this week Const: Vital Signs, click to edit/add: Vital Signs - 24 hr 09/20/24 13:59 Temperature 98.2 F Pulse Rate [Pulse Oximeter] 103 H Respiratory Rate 18 Blood Pressure [Ri ght Upper Arm] 110/77 Pulse Oximetry 94 Oxygen Delivery Me thod Room Air Course Vital Signs Vital signs: Initial Vital Signs Temperature 98.2 F 09/20/24 13:59 Temperature Source Temporal Artery Scan 09/20/24 13:59 Pulse Rate 103 H 09/20/24 13:59 Respiratory Rate 18 09/20/24 13:59 Blood Pressure 110/77 09/20/24 13:59 Blood Pressure Mean 88 09/20/24 13:59 Pulse Oximetry 94 09/20/24 13:59 Oxygen Delivery Method Room Air 09/20/24 13:59 Vital Signs Temperature 98.2 F 09/20/24 13:59 Pulse Rate 103 H 09/20/24 13:59 Respiratory Rate 18 09/20/24 13:59 Blood Pressure 110/77 09/20/24 13:59 Pulse Oximetry 94 09/20/24 13:59 Oxygen Delivery Method Room Air 09/20/24 13:59 Temperature 98.2 F 09/20/24 13:59 Pulse Rate 103 H 09/20/24 13:59 Respiratory Rate 18 09/20/24 13:59 Blood Pressure 110/77 09/20/24 13:59 Pulse Oximetry 94 09/20/24 13:59 Oxygen Delivery Method Room Air 09/20/24 13:59 Medications Administered Medications: Discontinued Medications Generic Name Dose Route Start Last Admin Trade Name Freq PRN Reason Stop Dose Admin Sodium Chloride 1,000 mls @ 1,000 mls/hr 09/20/24 16:30 09/20/24 17:09 0.9 % Sodium Chloride 1000 Ml IV 09/20/24 17:29 Not Given .Q1H BHAVANA Lorazepam 1 mg 09/20/24 14:24 09/20/24 14:38 Lorazepam 1 Mg Tablet PO 09/20/24 14:25 1 mg ONCE ONE Administration Potassium Bicarbonate 25 meq 09/20/24 16:20 09/20/24 16:55 Potassium Bicarb 25 Meq Effervescent Tab PO 09/20/24 16:21 25 meq ONCE ONE Administration Medical Decision Making [facility] Narrative Medical decision making narrative: pleasant 58 yo F presenting to ER for eval of tingling paresthesias affecting symmetrically both sides of her whole body, beginning in her feet and spreading proximally from there. Symptoms began after her first dose of a new probiotic gummy (not containing THC or other drugs). Differential is broad. No seizure activity. No altered mental status or headache to suggest ICH or SAH. No chest pain to suggest ACS, but given potential for an atypical presentation, EKG and trop were checked and normal. Given bilateral/symmetric tingling, not suggestive of stroke. EKG here in ER shows NSR. No arrythmia. Glc normal. TSH normal. Electrolytes normal save for mild hypokalemia. Supplemented here in ER, but likely not low enough to cause all of her symptoms. Consider anxiety attack, but not accutly anxious affect on presentation. PO ativan with some improvement. Also consider side effect of her probiotic gummy. Advised to discontinue use until alterrnative cause for her symptoms is found. During obs and workup here in ER symptoms slowly improved. Pt is feeling better. She and her son are comfortable to DC home and monitor carefully. Precautions for return and need for follow up reviewed. Lab Data Labs: Lab Results 09/20/24 09/20/24 09/20/24 Range/Units 14:24 14:35 17:04 WBC 3.45 L (4.50-11.00) K/uL RBC 4.39 (4.00-5.20) m/uL Hgb 13.3 (12.0-16.0) gm/dL Hct 40.2 (33.0-51.0) % MCV 92 (80-100) fL MCH 30 (26-34) pg MCHC 33 (32-36) gm/dL RDW Coeff of [place] 14.2 (11.5-15.5) % Plt Count 205 (140-440) K/uL Neut % (Auto) 70.4 (42.0-72.0) % Lymph % (Auto) 23.2 (20-44) % [place] % (Auto) 5.5 (0.0-11.0) % Eos % (Auto) 0.3 (0.0-7.0) % Baso % (Auto) 0.6 (0.0-3.0) % Neut # (Auto) 2.40 (1.7-7.0) K/uL Lymph # (Auto) 0.80 L (0.90-2.90) K/uL [place] # (Auto) 0.20 (0.00-0.90) K/UL Eos # (Auto) 0.00 (0.00-0.50) K/uL Baso # (Auto) 0.00 (0.00-0.30) K/uL Abs Immat Gran (auto) 0.00 (0.00-0.30) K/uL Imm/Tot Granulo (auto) 0.0 % D-Dimer Quant (PE/DVT) < 0.27 (0.00-0.50) ug/ml Sodium 142 (135-149) mmol/L Potassium 3.2 L (3.6-5.1) mmol/L Chloride 111 (96-114) mmol/L Carbon Dioxide 20 (20-32) mmol/L Anion Gap 11 (7-15) mEq/L BUN 17 (7-30) mg/dL Creatinine 0.8 (0.5-1.5) mg/dL Estimated Creat Clear 69.82 Estimated GFR 86 ml/min Glucose 125 H (60-115) mg/dL Calcium 8.9 (8.4-10.6) mg/dL Magnesium 1.6 (1.5-2.6) mg/dL TSH 0.909 (0.270-4.200) uIU/mL POC Troponin I 0.01 0.00 L (0.01-0.04) ng/ml ECG Data Attestation: I personally reviewed and interpreted this ECG as follows: Interpretation: Normal sinus rhythm Rate: 82 MN: 174 QRS axis: Normal axis. ST segment/T wave: Nonspecific T-wave inversions V1, V2, V3, V4. Nonspecific T-wave flattening. No ST segment elevation or depression QTc: 427 Discharge Plan Discharge Clinical Impression: Paresthesias, Acute hypokalemia Patient Disposition: Home, Self-Care Condition: Stable Instructions: Hypokalemia (ED), Paresthesia (ED) Additional Instructions: At this point your workup looks reassuring. However, we do not know with sign typically certainty what caused her symptoms. I suspect they were probably caused by a reaction to your new probiotic. I would recommend that you discontinue that medication. Continue your other meds. Your potassium level is mildly low today. It is important to eat foods that are rich in potassium (for instance, bananas, tomato juice, avocados, potato skins) for the next couple of days to help her potassium level come up. Please follow-up with your regular doctor to recheck your potassium level within 1-2 weeks. If you have any new or worsening symptoms such as new numbness or tingling, weakness in your arms or legs, palpitations, chest pain, confusion or slurred speech, or if you notice any other problems, please return to the ER right away to be rechecked. Prescriptions: No Action metformin 500 mg tablet 500 mg PO BID triamcinolone acetonide 0.1 % cream 1 applic topical BID-TID topiramate 100 mg tablet 100 mg PO BID duloxetine 60 mg capsule,delayed release(DR/EC) 60 mg PO DAILY Wegovy 0.5 mg/0.5 mL pen injector SUBCUT Patient Comments: [NO ORIGINAL SIG] dextroamphetamine-amphetamine 20 mg tablet 20 mg PO DAILY fluoxetine 10 mg capsule 10 mg PO ferrous sulfate 325 mg (65 mg iron) tablet,delayed release (DR/EC) 325 mg PO DAILY prednisone 20 mg tablet 20 mg PO BID Qty: 6 0RF Follow Up/Referrals: Stefania Fischer PA-C [Primary Care Provider] - Stand Alone Forms: [employer] Info Instructions
[2024-09-20 13:59] VITALS: BP 110/77; PULSE 103; RESP 18; TEMP 36.8; O2SAT 94; BMI 38.4
[2024-09-20] MEDS: LORazepam 1 MG TABLET PO (14:38)
[2024-09-20 14:48] LABS: Basophils Percent Auto 0.6 % (0.0-3.0); Eosinophils Percent Auto 0.3 % (0.0-7.0); Hematocrit 40.2 % (33.0-51.0); Hemoglobin* 13.3 gm/dL (12.0-16.0); Lymphocytes Percent Auto 23.2 % (20-44); Mean Corpuscular HGB Conc 33 gm/dL (32-36); Mean Corpuscular Hemoglobin 30 pg (26-34); Mean Corpuscular Volume 92 fL (80-100); Monocytes Percent Auto 5.5 % (0.0-11.0); Neutrophils Percent Auto 70.4 % (42.0-72.0); Platelet Count* 205 K/uL (140-440); RDW Coefficient of Variation % 14.2 % (11.5-15.5); Red Blood Count 4.39 m/uL (4.00-5.20); White Blood Count* 3.45 K/uL (4.50-11.00)
[2024-09-20 14:53] LABS: Troponin, Point-of-Care* 0.01 ng/ml (0.01-0.04)
[2024-09-20 15:00] LABS: Slide Review Reflex No
[2024-09-20 15:01] LABS: Chloride* 111 mmol/L (96-114); Sodium* 142 mmol/L (135-149)
[2024-09-20 15:02] LABS: Potassium* 3.2 mmol/L (3.6-5.1)
--- OUTSIDE RECORDS SUMMARY | 2024-09-20 15:03 | XMS_ITS | Clinical Summary ---
Author Organization [employer] [facility] Address [address] [place] [id number] Care Team Providers Care Pharmaceutical Plant Operator Name Role Phone Sid Van MD Unavailable [phone] Maria Luz Estrada MD Unavailable Stefania Fischer Primary Care Provider Allergies Active [...] cervical 01/07 Overview (01/20/2022): 01/07/18 ASCUS/HPV+ 02/11/18 Brady: Negative 12/24/21 NIL/HPV+, HPV 16/18 Negative Plan: [...] Description 09/14/2024 2:25 PM CDT Office Visit [facility] [address] [place] [address] Aquilino Brooks PA Derm Problem 09/14/2024 Travel 09/14/2024 Nurse Triage [facility] [address] [place] [address] Stefania Fischer PA Bite (Large red/purple lumps on face and neck) 08/05/2024 Refill [facility] [address] [place] [address] Stefania Fischer PA Refill Request (Metformin) 07/20/2024 11:50 AM CDT Office Visit [facility] [address] [place] [address] Stefania Fischer PA Medication Management (Wegovy - ) 07/19/2024 Travel 07/12/2024 Refill [facility] [address] [place] [address] Teresa Foster NP Refill Request (Duloxetine) 06/25/2024 Refill [facility] [address] [place] [address] Stefania Fischer PA Refill Request (Sumatriptan) from [...] on file Legal Sex Female 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 Gender Identity Not on file Sexual Orientation [...] Description 09/23/2024 10:30 AM CDT Office Visit [facility] [address] [place] [address] Stefania Fischer PA [address] [place] [address] 10/11/2024 10:30 AM CDT Office Visit [facility] [address] [place] [address] Teresa Foster NP [address] [place] [address] 10/18/2024 11:10 AM CDT Office Visit [facility] [address] [place] [address] Stefania Fischer PA [address] [place] [address] Health Maintenance Due Date Last Done Comments [...] MAMMO BILAT SCREENING Routine 05/10/2024 11:52 AM 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 Visit for screening mammogram ANTI HCV Routine [...] CDT) GLUCOSE 87 65 - 99 mg/dL [facility] Comment: Fasting reference interval UREA NITROGEN (BUN) 19 7 - 25 mg/dL [facility] CREATININE 0.86 0.50 - 1.03 mg/dL [facility] EGFR 79 > OR = 60 mL/min/1. 73m2 [facility] BUN/CREATININE RATIO SEE NOTE: 6 - 22 (calc) [facility] Comment: Not Reported: BUN and Creatinine are within reference range. SODIUM 143 135 - 146 mmol/L [facility] POTASSIUM 4.9 3.5 - 5.3 mmol/L [facility] CHLORIDE 105 98 - 110 mmol/L [facility] CARBON DIOXIDE 27 20 - 32 mmol/L [facility] ELECTROLYTE BALANCE 11 7 - 17 mmol/L (calc) [facility] CALCIUM 9.7 8.6 - 10.4 mg/dL [facility] Blood BLOOD SPECIMEN / Unknown 07/20/2024 12:07 PM CDT 07/20/2024 12:07 PM CDT us Stefania REHMAN CHEMISTRY Final R esult [employer] [facility] [address] [place] [address], [facility] [address] [place] [address] * XR MAMMO BILAT SCREENING (05/10/2024 11:52 AM 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) Anatomical Region Laterality Modality BREASTS, Breast Left, Breast Right Bilateral Mammography Impressions 05/10/2024 3:50 PM 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 There is no radiographic evidence for malignancy. Recommend annual mammograms. MAMMOGRAM ASSESSMENT: ACR 1 Negative PATIENTS: You will also receive a letter with your examination results in an easy to read format. If you have questions about your results, please contact your referring provider. Narrative 05/10/2024 3:50 PM 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 For Patients: As a result of the Century Cures Act, medical imaging exams and procedure reports are released immediately into your electronic medical record. You may view this report before your referring provider. If you have questions, please contact your health care provider. XR MAMMO BILAT SCREENING [[id number]] CLINICAL HISTORY: This is an asymptomatic 58 y.o. patient. INDICATION FOR EXAM: Mammogram Screening. TECHNIQUE: CC & MLO views were obtained. This study was evaluated with the assistance of Computer-Aided Detection. COMPARISON FILM: Yes 04/16/23 [employer] 09/25/21 [facility] FINDINGS: There are scattered areas of fibroglandular density. There are no dominant masses, suspicious micro calcifications or areas of architectural distortion. us Stefania REHMAN MAMMO Final R esult * (ABNORMAL) LIPID PANEL W REFLEX MEASURED LDL (12/24/2021 11:34 AM CDT) CHOLESTEROL,TOTAL 230(H) 100 - 199 mg/dL 12/25/2021 4:41 AM CDT [facility] TRIGLYCERIDES 84 <150 mg/dL 12/25/2021 4:41 AM CDT [facility] HDL CHOLESTEROL 92 >40 mg/dL 4:41 AM CDT [facility] NON-HDL CHOLESTEROL 138 <145 mg/dl 12/25/2021 4:41 AM CDT [facility] CHOL/HDL RATIO 2.50 <4.50 12/25/2021 4:41 AM CDT [facility] LDL CHOLESTEROL 121 <=130 mg/dL 12/25/2021 4:41 AM CDT [facility] VLDL CHOLESTEROL 17 <=30 mg/dL 12/25/2021 4:41 AM T [facility] PROVIDER ORDERED STATUS RANDOM 12/25/2021 4:41 AM CDT [facility] Blood BLOOD SPECIMEN / Unknown Butterfly / Unknown 12/24/2021 11:34 AM CDT 12/24/2021 11:35 AM CDT Stefania REHMAN CHEMISTRY Final R esult [facility] [address] [place] [address], [place] * ANTI HCV (12/24/2021 11:34 AM CDT) HEPATITIS C ANTIBODY Non-React raisa Non-React raisa 12/25/2021 5:01 AM CDT [facility] Comment:Antibodies to HCV no t detected; does not exclude the possibility of exposure to HCV. Blood BLOOD SPECIMEN / Unknown Butterfly / Unknown 12/24/2021 11:34 AM CDT 12/24/2021 11:35 AM CDT Stefania REHMAN SEND OUTS Final R esult Performing Organization Address City/Va Hospital/ZIP Co de Phone Number [facility] [address] [place] [address], * (ABNORMAL) HPV HIGH RISK (12/24/2021 11:08 AM CDT) TYPE 16 Negative Negative 12/26/2021 2:34 PM CDT [facility] TYPE 18 Negative Negative 12/26/2021 2:34 PM CDT [facility] OTHER HIGH RISK TYPES Positive(A) Negative 12/26/2021 2:34 PM CDT [facility] Other (Cervical) Non-Blood / Unknown 12/24/2021 11:08 AM CDT 12/24/2021 6:53 PM CDT Narrative [facility] - 12/26/2021 2:34 PM CDT Specimen is positive for the DNA of any one of, or combination of, the following high risk HPV types: 31, 33, 35, 39, 45, 51, 52, 56, 58, 59, 66, 68. HPV types 16 and 18 DNA were undetectable or below the pre-set threshold. Methodology: Yadira Bebe 4800 HPV Test us Stefania REHMAN MICROBIOLOGY Final R esult [facility] [address] [place] [address], [place] * COLONOSCOPY (07/31/2017 9:22 AM CDT) [...] candidate for conscious sedation. The Colon [id number] [id number] was passed through the anus and advancedto [...] there are any questions, please contact the rehabilitator. Moderate Sedation: Moderate (conscious) sedation was administered by the endoscopy nurse and supervised by the endoscopist. The following parameters were monitored: oxygen saturation, heart rate, respiratory rate, blood pressure, adequacy of pulmonary ventilation and reponse to care. Please refer to the [facility] flowsheets and nursing notes for moderate sedation details. Total physician intraservice time was 24 minutes. Billy Jefferson MD 07/31/2017 10:11:45 AM This report has been signed electronically. Note Initiated On: 07/31/2017 9:22 AM Procedure Code(s): --- Professional --- 32824, Colonoscopy, flexible; with removalof tumor(s), polyp(s), or other lesion(s) bykaynarsulma technique 43553, 59, Colonoscopy, flexible; withbiopsy, single or multiple Diagnosis Code(s): --- Professional --- Z12.11, Encounter for screening formalignant neoplasm of colon D12.5, Benign neoplasm of sigmoid colon D12.2, Benign neoplasm of ascending colon Q43.8, Other specified congenitalmalformations of intestine CPT copyright 2017 [employer]. All rights reserved. The codes documented in this report are preliminary and upon mold yard crane operator reviewmay be revised to meet current compliance requirements. Scope In: 9:36:11 AM Scope Withdrawal Time 0 hours 11 minutes 55 seconds Scope Out: 9:58:16 AM Billy Jefferson MD PROCEDURE ORD Final Res ult from Last 3 Months or Most Recently Relevant to Health Maintenance Insurance [facility] Advance Directives * Full Code (Latest Code Status on File) Date Activated Date Inactivated Comments 11/26/2012 8:21 AM 11/26/2012 3:05 PM * Full Code Date Activated Date Inactivated Comments 10/18/2008 10:50 AM 10/22/2008 4:30 PM * Full Code Date Activated Date Inactivated Comments 10/15/2008 8:58 AM 10/18/2008 10:50 AM Care Teams Pharmaceutical Plant Operator Relationship Specialty Start Date End Date Stefania Fischer PA [address] [place] [address] PCP - General Family Practice 03/20/15 Sid Van MD [address] [address] Nephrology Nephrology 06/30/12 Maria Luz Estrada MD [address] [place] [address] Gynecology Obstetrics and Gynecology 09/28/12
[2024-09-20 15:04] LABS: Anion Gap 11 mEq/L (7-15); Blood Urea Nitrogen* 17 mg/dL (7-30); Carbon Dioxide* 20 mmol/L (20-32); Creatinine* 0.8 mg/dL (0.5-1.5); Est. Creatinine Clearance* 69.82; Estimated Glomerular Filt Rate 86 ml/min
[2024-09-20 15:05] LABS: Calcium* 8.9 mg/dL (8.4-10.6); Glucose* 125 mg/dL (60-115); Magnesium* 1.6 mg/dL (1.5-2.6)
[2024-09-20 16:13] LABS: D Dimer Quantitative* < 0.27 ug/ml (0.00-0.50)
[2024-09-20 16:27] LABS: TSH With Reflex to FT4* 0.909 uIU/mL (0.270-4.200)
[2024-09-20] MEDS: POTASSIUM BICARB 25 MEQ EFFERVESCENT TAB PO (16:55)
== END 2024-09-20 18:20 | disposition home or self-care (01) ==
PROVIDERS: Emergency Provider Emergency Medicine; PCP Physician Assistant Medical
DX: E87.6 Hypokalemia (principal); R20.2 Paresthesia of skin
CPT/HCPCS: 36415; 80048; 83735; 84443; 84484; 85025; 85379; 93005; 99283; 99284; A9270